=== PATIENT | female | born 1965 | race African-American/Black ===

== ENCOUNTER 2016-11-19 19:02 | Emergency (ER) | payer OTHER ==
[~2016-11-19] VITALS: Ht 157.5 cm; Wt 90.0 kg
[~2016-11-19 19:02] MED LIST: CARI350 PO; CITA10TA7 PO; LISI-661 PO; PERCT10 PO
[2016-11-19] MEDS ORDERED: TRAM50TA4 PO (19:30)
[2016-11-19] MEDS ORDERED: HYDR-3971 PO (19:30)
[2016-11-19] MEDS ORDERED: KETOROLAC TROMETHAMINE 60 MG/2 ML VIAL IM ONE (20:30)
[2016-11-19] MEDS ORDERED: ACETAMINOPHEN/CODEINE 300-30 MG TABLET PO ONE (21:30)
[2016-11-19 21:33] VITALS: BP 144/84
== END 2016-11-19 21:46 | disposition home or self-care (01) ==
LOC: EMS 19:07
DX: M54.6 Pain in thoracic spine (principal); G89.29 Other chronic pain; G43.909 Migraine, unspecified, not intractable, without status migrainosus; Z88.5 Allergy status to narcotic agent; Z88.8 Allergy status to other drugs, medicaments and biological substances
CPT/HCPCS: 93005; 96372; 99283; J1885

== ENCOUNTER 2020-01-30 11:33 | Emergency (ER) | payer OTHER ==
[~2020-01-30] VITALS: Ht 157.5 cm; Wt 90.9 kg
[~2020-01-30 11:33] MED LIST changes: -CARI350 PO; +CARI350T26 PO; -CITA10TA7 PO; +HYDR-4069 PO; -PERCT10 PO; +TRAM50TA4 PO
[2020-01-30 11:36] VITALS: BP 161/83
[2020-01-30] MEDS ORDERED: ACETAMINOPHEN 500 MG TABLET PO ONE (12:00)
== END 2020-01-30 12:27 | disposition home or self-care (01) ==
LOC: EMS 11:34
DX: R20.2 Paresthesia of skin (principal); F32.9 Major depressive disorder, single episode, unspecified; Z88.8 Allergy status to other drugs, medicaments and biological substances; Z79.899 Other long term (current) drug therapy
CPT/HCPCS: Z7502; Z7610